=== PATIENT | male | born 1995 | race Caucasian/White ===

== ENCOUNTER 2018-10-28 21:59 | Emergency (ER) | payer OTHER ==
[~2018-10-28] VITALS: Ht 185.4 cm; Wt 80.7 kg
--- NOTE | 2018-10-28 23:11 | Diagnostic Imaging Report ---
Exam: Left ankle 3 views History: Pain, injury Comparison: None. Findings: No fracture or malalignment. Joint spaces preserved. Soft tissue swelling of the ankle. Impression: Soft tissue swelling of the ankle without fracture Signed by: Dr. Ki Veras M.D. on 10/28/2018 11:08 PM
[2018-10-29 00:14] VITALS: BP 143/76
== END 2018-10-29 00:43 | disposition home or self-care (01) ==
LOC: ER 21:59
DX: S93.492A Sprain of other ligament of left ankle, initial encounter (principal); X50.1XXA Overexertion from prolonged static or awkward postures, initial encounter; Y93.67 Activity, basketball; Y92.310 Basketball court as the place of occurrence of the external cause
CPT/HCPCS: 99283